=== PATIENT | male | born 1955 | race Caucasian/White ===

== ENCOUNTER 2022-01-28 23:16 | Emergency (ER) | payer SELFPAY ==
[2022-01-28] MEDS ORDERED: Lidocaine 1% 30 ML SDV ONE (23:40)
[2022-01-29] MEDS ORDERED: Diphtheria,Pertussis(Acell),Tetanus Vaccine 0.5 ML Syringe IM ONE (00:16)
[2022-01-29] MEDS ORDERED: Diphtheria,Pertussis(Acell),Tetanus Vaccine 0.5 ML Syringe ONE (00:19)
== END 2022-01-29 00:34 | disposition home or self-care (01) ==
LOC: VM.ED 23:16
DX: S61.412A Laceration without foreign body of left hand, initial encounter (principal); W26.9XXA Contact with unspecified sharp object(s), initial encounter; Z23 Encounter for immunization
CPT/HCPCS: 12001; 90471; 99282-25; 99283